=== PATIENT | female | born 1970 ===

== ENCOUNTER 2018-10-15 16:24 | Outpatient (CLI) | payer OTHER ==
[~2018-10-15] VITALS: Ht 165.1 cm; Wt 77.1 kg
== END 2018-10-15 16:50 | disposition home or self-care (01) ==
LOC: OFIC 805 16:24
DX: K21.0 Gastro-esophageal reflux disease with esophagitis (principal); R49.0 Dysphonia; R22.1 Localized swelling, mass and lump, neck

== ENCOUNTER 2019-06-06 08:22 | Outpatient (CLI) | payer OTHER | END 2019-06-06 08:28 | disposition home or self-care (01) | LOC: SONOGRAMA 08:22 | DX: R22.2 Localized swelling, mass and lump, trunk (principal) ==

== ENCOUNTER 2019-07-09 10:39 | Outpatient (CLI) | payer OTHER | END 2019-07-09 12:49 | disposition home or self-care (01) | LOC: OFIC 805 10:39 | DX: R22.1 Localized swelling, mass and lump, neck (principal) ==

== ENCOUNTER 2020-12-22 08:00 | Outpatient (CLI) | payer OTHER | END 2020-12-22 08:30 | disposition home or self-care (01) | LOC: PPH VACUNA 08:00 | PROVIDERS: ATTEND Emergency Medicine Pediatric Emergency Medicine | DX: Z23 Encounter for immunization (principal) ==

== ENCOUNTER 2021-11-05 06:15 | Day surgery (SDC) | payer OTHER ==
[~2021-11-05 06:15] MED LIST: [UNRECOGNIZED DRUG - OTHER] PO
== END 2021-11-05 15:20 | disposition home or self-care (01) ==
LOC: CIR.AMB 06:15
PROVIDERS: ATTEND Obstetrics & Gynecology
DX: N84.0 Polyp of corpus uteri (principal); Z20.822 Contact with and (suspected) exposure to COVID-19; Z88.6 Allergy status to analgesic agent